=== PATIENT | male | born 1945 | race Caucasian/White ===

== ENCOUNTER 2020-06-09 14:37 | Emergency (ER) | payer OTHER ==
[~2020-06-09] VITALS: Ht 175.3 cm; Wt 70.3 kg
[2020-06-09] MEDS ORDERED: PROSCAR5 MG (15:06)
[2020-06-09] MEDS ORDERED: SIMVASTATIN5 MG (15:06)
[2020-06-09] MEDS ORDERED: KETO10TA2 PO (21:27)
[2020-06-09] MEDS ORDERED: PEPCID AC20 MG PO (21:27)
== END 2020-06-09 21:36 | disposition home or self-care (01) ==
LOC: ER 14:37
DX: S97.112A Crushing injury of left great toe, initial encounter (principal); S92.492A Other fracture of left great toe, initial encounter for closed fracture; W20.8XXA Other cause of strike by thrown, projected or falling object, initial encounter; Y93.89 Activity, other specified; Y92.89 Other specified places as the place of occurrence of the external cause; Y99.8 Other external cause status